=== PATIENT | female | born 1950 | race American Indian/Alaskan Native ===

== ENCOUNTER 2019-10-27 10:46 | Emergency (ER) | payer MEDICARE ==
[2019-10-27 11:29] VITALS: BP 145/46
--- NOTE | 2019-10-27 11:35 | Event Note ---
ED Screening Note ED Screening Note: states she has a cough with clear mucus states she has been taking mucinex and cough medication no fever no n/v/d +congestion no sore throat no ear pain PMHx DM, HTN no allergies to meds never smoker
--- NOTE | 2019-10-27 11:36 | Emergency Department Report ---
Chief Complaint: Upper Respiratory Infection Stated Complaint: COLD Time Seen by Provider: 10/27/19 11:29 - HPI History of Present Illness: pt is a 69 yo female who states she has a cough with clear mucus over 4 months states she has been taking mucinex and cough medication pt has been to other hospital emergency rooms and to her primary care doctor for this complaint and has been treated at these facilities she denies any diagnosis of PNA no fever no n/v/d +congestion no sore throat no ear pain no SOB no CP PMHx DM, HTN no allergies to meds never smoker initial vitals with mildly elevated HR which improved upon repeat to normal normal oxygen saturation, no tachypnea on exam: Non toxic appearing, no acute distress atraumatic, normocephalic normal appearance of the eyes, PERRL, EOMI, no periorbital edema or ecchymosis moist mucus membranes pale turbinates, no sinus TTP regular heart rate and rhythm, no gallops, no rubs, no murmurs breath sounds are clear bilaterally, no w/r/r A&O x4, no focal neuro deficit skin is warm, dry, intact breath sounds are completely clear on exam no clinical s/sx of PNA low risk based on wells criteria for PE persistent dry cough could be related to allergies pt is presenting with a non medical emergency at this time, medical screening examination performed and there is no threat to life or limb at this time discussed symptomatic treatment with pt advised to see her PCP in 3 days for reexamination discussed in detail strict return precautions - Exam Vital Signs: Vital Signs 10/27/19 11:07 Temperature 98.0 F Pulse Rate 100 H Respiratory 18 Rate Blood Pressure 145/46 O2 Sat by Pulse 100 Oximetry MSE screening note: Focused history and physical exam performed. ED Disposition for MSE Clinical Impression: Persistent dry cough Disposition: Z- MED SCREENING EXAM-LEFT Is pt being admited?: No Does the pt Need Aspirin: No Condition: Stable Additional Instructions: please use zyrtec or claritin over the counter. use nasal saline washes and then use flonase nasal spray. use a dehumidifier. increase your water intake. follow up with a primary care doctor in the next 2-3 days for reexamination. return to the emergency room for any new or worsening symptoms including but not limited to fever of 100.4 or greater, cough with white/brown mucus productive, shortness of breath, chest pain, or if symptoms are not improving. Referrals: ROBERTO HOWARD MD [Staff Physician] - 3-5 Days [facility] [Provider Group] - 3-5 Days [facility] [Outside] - 3-[address] [facility] [place] [Outside] - 3-5 Days Time of Disposition: 11:36 Print Language: MALAY
== END 2019-10-27 12:21 | disposition left against medical advice (07) ==
LOC: ED 10:46
DX: R05 Cough (principal); R09.89 Other specified symptoms and signs involving the circulatory and respiratory systems; I10 Essential (primary) hypertension; E11.9 Type 2 diabetes mellitus without complications
CPT/HCPCS: 99281